=== PATIENT | female | born 1955 | race Caucasian/White ===

== ENCOUNTER 2016-12-26 20:27 | Emergency (ER) | payer OTHER ==
[~2016-12-26] VITALS: Ht 160 cm; Wt 57.5 kg
[2016-12-26 20:42] VITALS: Ht 160 cm; Wt 57.5 kg
--- NOTE | 2016-12-26 22:08 | ERD ---
ER Documentation Chief Complaint Date/Time DATE: 12/26/16 TIME: 21:55 Chief Complaint TOTAL BODY RASH X 3 WKS WITH SEVERE ITCHING. "FEELS LIKE BUGS". HPI Pleasant 61-year-old female presents to emergency department with complaint of total body rash, and itching for the last 3 weeks. Patient reports that she was visiting friends sleeping in a strange bed, rash started at that time. Patient has seen little black bugs on her friend's dog is unsure if she has been bitten by something or has an infestation. Physical exam shows red erythemic scan with dermographism and scabs on back, scabs on hands and webbing . 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 Patient has secondary complaint of shallow painful ulcers on upper inner lip, patient wears a partial plate denture. Patient will remain in room until discharge. ROS All systems reviewed and are negative except as per history of present illness. Medications Home Meds Active Scripts Prednisone* (Prednisone*) 20 Mg Tab, 40 MG PO DAILY for 4 Days, TAB Prov:YANET,RENETTA 12/26/16 Cephalexin* (Keflex*) 500 Mg Capsule, 500 MG PO TID for 10 Days, CAP Prov:YANET,RENETTA 12/26/16 Triamcinolone Acetonide (Triamcinolone Acetonide) 0.1% - 15 Gm Cream.gm., 1 APPLIC TOP QID, #1 TUB Prov:YANET,RENETTA 12/26/16 Hydroxyzine Hcl* (Hydroxyzine Hcl*) 50 Mg Tablet, 50 MG PO Q6, #40 TAB Prov:YANET,RENETTA 12/26/16 PMhx/Soc History of Surgery: No Anesthesia Reaction: No Hx Neurological Disorder: No Hx Respiratory Disorders: No Hx Cardiac Disorders: No Hx Psychiatric Problems: No Hx Alcohol Use: No Hx Substance Use: No Hx Tobacco Use: No Smoking Status: Never smoker Physical Exam Vitals Vital Signs Date Time Temp Pulse Resp B/P Pulse Ox O2 Delivery O2 Flow Rate FiO2 12/26/16 20:42 98.3 76 18 165/103 100 Vitals stable, nursing notes for Physical Exam Const: No acute distress Head: Atraumatic Eyes: Normal Conjunctiva PERRLA, EOMI ENT: Normal External Ears, Nose and Mouth, moist, white paste noted corners of mouth. Patient has stomatitis on lower upper lid, shallow ulcers with white bailey exudate Neck: Resp: Cardio: Abd: Skin: Thin fragile skin, red plaques with hives and dermographism, scabbed macules along spine and paraspinal skin. Scabbed macules noted on hands, forearms. Red erythemic wheals on chest, arms, abdomen. Back: Ext: Neur: Awake and alert Psych: Normal Mood and Affect Results 24 hrs This 61-year-old female presents to the emergency department with complaint of possible insect intensification, dermatitis, pruritus. Patient is scratching and fidgety in the room. Bright red raised plaques, hives, scabbed macules, with dermographism skin noted. She also reports painful ulcers in her lower lip. Scabies versus bedbugs versus allergic reaction. Argueta-Devon syndrome is not suspected. Treatment options discussed. Patient will be treated for bedbugs with prednisone, Atarax, Kenalog cream, and Keflex for secondary infection. I feel patient is appropriate for outpatient management and follow-up with primary care physician, take all medication as prescribed, hygiene and home cleaning discussed. I feel the patient is stable for discharge at this time. I have discussed results, examination findings, the treatment plan with the patient and family present prior to discharge. Indications for emergent reevaluation, side effects of medication were also discussed. All questions were answered. Patient verbalizes understanding and agrees with plan of care. Departure Diagnosis: Primary Impression: Rash and other nonspecific skin eruption Additional Impression: Infestation (skin) Condition: Good Patient Instructions: Bedbug Bites, Scabies, Self-Care for Skin Rashes Referrals: [facility] Comments Thank you for for coming to [facility] for your care today. Please ask your nurse or provider if you have questions about your care today and do not leave until all your questions have been answered. Please use any medications given as directed and follow-up with your doctor (or the doctor you were referred to) in the next 2-3 days. If you do not have a primary care doctor you may follow up at the [facility] (listed below). You may also use motrin and tylenol as needed for fever and/or pain unless instructed otherwise by your provider or nurse. Indications for more urgent follow-up have been discussed, but you may return to the Emergency Department at ANY time for any worrisome or worsening symptoms. If you have abdominal pain, please know that no test or exam you received is perfect and you should follow up within 8 hours for continued pain. If you had any imaging studies today, such as an X-Ray or CT Scan, these studies will be reviewed later by a radiologist. You will be called if there are important findings that were not identified today, so make sure the contact information you provided at registration is correct. If you received any narcotic pain control medicine today, such as Vicodin, Morphine or Dilaudid, your coordination and judgment may be affected for a number of hours. Please do not drive or operate heavy machinery, and you may want someone to assist you at home. If you were given a prescription for narcotic medication, be aware that it is very addictive- use sparingly and only if necessary. RENETTA HOLT Dec 26, 2016 22:08
[2016-12-26] MEDS ORDERED: HYDR-3012 PO (22:09)
[2016-12-26] MEDS ORDERED: CEPH-443 PO (22:11)
[2016-12-26] MEDS ORDERED: KENC1 TOP (22:11)
[2016-12-26] MEDS ORDERED: PRED20TA PO (22:14)
[2016-12-26 23:05] VITALS: BP 152/82; PULSE 72; RESP 18; TEMP 98.3
== END 2016-12-26 23:06 | disposition home or self-care (01) ==
LOC: FTE 20:27
DX: R21 Rash and other nonspecific skin eruption (principal); B88.9 Infestation, unspecified
CPT/HCPCS: 99284